=== PATIENT | male | born 2000 | race Caucasian/White ===

== ENCOUNTER 2021-08-01 22:22 | Inpatient (IN) | payer BC, SELFPAY ==
--- NOTE | ~2021-08-01 | XR_ITS ---
EXAMINATION: XR CHEST CLINICAL INFORMATION: Pain. COMPARISON: None TECHNIQUE: 2 views of the chest were obtained. FINDINGS: No significant abnormality is noted involving the heart, lungs, mediastinum, bony thorax or soft tissues. XR/XR chest 2V IMPRESSION: Unremarkable examination.
[2021-08-01 18:00] VITALS: BP 132/81; PULSE 73; TEMP 36.8
[2021-08-02] MEDS: Acetaminophen 325 MG TABLET 650 MG PO ×2 (00:06→18:49)
[2021-08-02] MEDS: hydrOXYzine HCL 25 MG TABLET PO (00:07)
[2021-08-02] MEDS: traZODone HCL 50 MG TABLET PO (00:07)
--- NOTE | 2021-08-02 10:56 | PC.NURSE ---
pt is not a smoker and does not need nicotine replacement. pt has already had the influenza vaccination.
--- NOTE | 2021-08-02 12:02 | P.CONIM_ITS ---
History of Present Illness Data of Consult Service Date: 08/02/21 Primary Care Provider: Unknown Physician HPI Reason for consult: Routine Medical H&P This is a 20 yo M with a PMH of UC (diangosed at the age of 9) -- reports he on mercaptopurine who is admitted to the inpatient psychiatric unit. Medical services consulted for routine medical H&P per protocol. Patient is seen and examined in his room. He denies any abodminal symptoms -- no pain, n/v/d or blood in stool. Reports his UC has been in control with his medications. He does f/u with a GI doctor as an outpatient. Review of Systems Review of Systems: negative except HPI FORMERLY [facility], [facility] Medical History (Updated 08/02/21 @ 12:14 by Ryan Nayak MD) Ulcerative colitis Pertinent family history: denies any medical problems in his family Surgical History (Updated 08/02/21 @ 12:05 by Ryan Nayak MD) Status post medial meniscus repair Social History (Updated 08/02/21 @ 12:05 by Ryan Nayak MD) Alcohol intake: current Patient Tobacco Use Status: Never used Tobacco Substance Use Type: Marijuana Advance Directives: No Advance Directives Information Provided: No Meds Allergies Allergy/AdvReac Type Severity Reaction Status Date / Time Seasonal Allergies Allergy Intermediate respiratory Verified 08/01/21 16:52 Active Medications: Current Medications Acetaminophen (Acetaminophen 325 Mg Tablet) 650 mg PO Q6H PRN PRN Reason: Headache/Pain Mild Scale (1-3) Last Admin: 08/02/21 00:06 Dose: 650 mg Documented by: Al Hydroxide/Mg Hydroxide (Magnesium Hydrox/Alum Hydrox 30 Ml Oral.Susp) 30 ml PO Q6H PRN PRN Reason: Heartburn/Nausea Diphenhydramine HCl (Diphenhydramine Hcl 25 Mg Tablet) 50 mg PO Q4H PRN PRN Reason: agitation Haloperidol (Haloperidol 5 Mg Tablet) 5 mg PO Q4H PRN PRN Reason: agitation Hydroxyzine HCl (Hydroxyzine Hcl 25 Mg Tablet) 25 mg PO BEDTIME PRN PRN Reason: Anxiety Last Admin: 08/02/21 00:07 Dose: 25 mg Documented by: Lorazepam (Lorazepam 1 Mg Tablet) 2 mg PO Q4H PRN PRN Reason: agitation Magnesium Hydroxide (Milk Of Magnesia 30 Ml Oral.Susp) 30 ml PO DAILY PRN PRN Reason: Constipation Quetiapine Fumarate (Quetiapine Fumarate 100 Mg Tablet) 100 mg PO BEDTIME RAY Trazodone HCl (Trazodone Hcl 50 Mg Tablet) 50 mg PO BEDTIME PRN PRN Reason: Insomnia Last Admin: 08/02/21 00:07 Dose: 50 mg Documented by: Physical Exam Vital Signs and Narrative: Vital Signs: Last Vital Signs Temp 98.2 F 08/01/21 18:00 Pulse 73 08/01/21 18:00 BP 132/81 08/01/21 18:00 Const: Other: Constitutional - Awake and Alert, No apparent distress Eyes - PERRLA, EOMI Cardiovascular - S1S2, RRR, No edema Respiratory - Normal lung expansion, Normal respiratory effort, No respiratory distress, CTA bilaterally Gastrointestinal - NT / ND; +BS; No rebound or guarding - No CVA tenderness Extremities - no calf tenderness bilaterally, no swelling Musculoskeletal - Normal inspection, normal ROM Skin - Warm/Dry Neurological - Alert & oriented x3, No focal deficit; CN 2-12 intact bilaterally Psychological - Appropriate affect Assessment and Plan (1) Routine medical exam: Status: Acute This is a 20 yo M with a PMH of UC on Mercaptopurine who is admitted to the inpatient psych unit. Medical services consulted for routine medical H&P. Patient does not have any active medical issues. Would continue his baseline UC medications. Would check routine labs if not already done so. Please reconsult PRN.
--- NOTE | 2021-08-02 14:39 | HO.PSYADMNOT ---
HPI Date of Service: 08/02/21 Chief Complaint: delusional disorder,provisional Sources of Information: patient interviewed, chart reviewed and crisis/core team assessment reviewed HPI Subjective Notes: [place] Warning and Conditional Voluntary Narrative: Patient is a 20-year-old male with history of behavioral dysregulation, mood disorder, ulcerative colitis, ADHD and some history of psychotic symptoms who presents with somatic delusions delusions that his bones are out of place, that his veins have changed and that his right arm tricep and bicep been switched. Patient says that about 2 weeks ago he got into an argument with a friend who he feels emotionally betrayed him. Otherwise he says that he has been doing overall fine, and attending school though academics have been hard. Patient has a history of right knee surgery and says that last Thursday he tweaked his knee. He walked on it however and feels that somehow this affected his hips which affected his ribs, which affected his right arm. He said that when he went to the emergency room he could feel his arm twist and he thinks that now his bicep and tricep have been switched; he also says that there seemed to be more bones in his arm than there are supposed to be. Patient says that he has not lost any function in and is able to do everything he could normally do however he feels a sense of discomfort in his body, and believes that something is wrong. He was frustrated with emergency room it [facility] since they only imaged his knee. Patient denies any AVH. He also denies any SI or HI. Patient denies any concern for being persecuted does not express any other delusional thinking. He is very vague on his history and it is not clear if he is confused or if he is guarded. Eventually he shared that he has had at least 6 past inpatient admissions either for drug use or for behavioral dysregulation. He seems to say his last admission was was about 2 years ago; 1st he said he could not remember why but then he said he was getting pissed off, smashing a book and then destroying stuff in [his] room. He said he was admitted for 3 weeks. Patient says that 1 time before he had psychotic symptoms while he was smoking cannabis where he thought that his veins had changed their pattern. Currently he reports smoking cannabis every few days and then drinking excessively but only on the weekends. He denies other drug use. He denies history of manic type episodes or behaviors. Denies history of trauma. Patient says he has mood swings and that can sometimes get into a dark place however said this lasted only a day or 2. 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 [employer] where he lives in a dorm with a roommate Patient's stepmom and adoptive dad live locally and patient has siblings Substance History: Patient vague on details but says he has been admitted for history of drug use Currently he smokes cannabis every other day and uses alcohol on the weekends Trauma History: Denies Diagnostics Vital Signs (24Hr): Vital Signs - 24 hr 08/01/21 18:00 Temperature 98.2 F Pulse Rate 73 Blood Pressure 132/81 Meds/Allergies Meds Home Medications Acetaminophen (Acetaminophen 325 Mg Tablet) 650 mg PO Q6H PRN PRN Reason: Headache/Pain Mild Scale (1-3) Last Admin: 08/02/21 00:06 Dose: 650 mg Documented by: Al Hydroxide/Mg Hydroxide (Magnesium Hydrox/Alum Hydrox 30 Ml Oral.Susp) 30 ml PO Q6H PRN PRN Reason: Heartburn/Nausea Brexpiprazole (Brexpiprazole 1 Mg Tablet) 1 mg PO BEDTIME RAY Diphenhydramine HCl (Diphenhydramine Hcl 25 Mg Tablet) 50 mg PO Q4H PRN PRN Reason: agitation Haloperidol (Haloperidol 5 Mg Tablet) 5 mg PO Q4H PRN PRN Reason: agitation Hydroxyzine HCl (Hydroxyzine Hcl 25 Mg Tablet) 25 mg PO BEDTIME PRN PRN Reason: Anxiety Last Admin: 08/02/21 00:07 Dose: 25 mg Documented by: Lorazepam (Lorazepam 1 Mg Tablet) 2 mg PO Q4H PRN PRN Reason: agitation Magnesium Hydroxide (Milk Of Magnesia 30 Ml Oral.Susp) 30 ml PO DAILY PRN PRN Reason: Constipation Quetiapine Fumarate (Quetiapine Fumarate 100 Mg Tablet) 100 mg PO BEDTIME RAY Trazodone HCl (Trazodone Hcl 50 Mg Tablet) 50 mg PO BEDTIME PRN PRN Reason: Insomnia Last Admin: 08/02/21 00:07 Dose: 50 mg Documented by: Allergies Allergies Allergy/AdvReac Type Severity Reaction Status Date / Time Seasonal Allergies Allergy Intermediate respiratory Verified 08/01/21 16:52 Mental Status Exam Mental Status Exam Narrative: Pt is alert and oriented; behavior is cooperative, calm; patient is not in distress; dressed in appropriate, casual attire with adequate hygiene; mood is described as ok and affect blunted; minimal eye contact; Speech is a little slow, a little latent, but normal volume; some psychomotor retardation present; thought process is organized and goal directed; Thought content is on somatic delusions (bones, muscles out of place); otherwise pertinent to relevant topics; denies paranoid ideations; no grandiosity; denies any SI/HI. There is no evidence of perceptual disturbance and denies AVH. Patients insight and judgment are impaired. Assessment & Plan Assessment & Plan (1) Delusional disorder: Status: Acute Code(s): F22 - Delusional disorders Assessment and Plan: IMPRESSION: Patient is a 20-year-old male with history of behavioral dysregulation, mood disorder, ulcerative colitis and some history of psychotic symptoms who presents with somatic delusions that his bones are out of place, that his veins have changed and that his right arm tricep and bicep been switched. Patient is vague and it is not clear if this is due to some confusion/thought blocking or patient being guarded. He has a history of past psychiatric admissions and admissions for drug abuse but again he is very vague on the details. Patient said that he has had past cannabis induced psychotic symptoms of somatic delusion but these were short-lived and otherwise patient said that everything was going fine until this past Thursday when he developed his current somatic concerns. There seems to be a history of intermittent psychotic symptoms; it is possible that this is due to drug-induced etiology however there is concern it represents a burgeoning organic psychotic disorder. Patient says that he takes his medications regularly. He agrees to increase in Rexulti. dx: provisonal dx of Delusional Disorder r/o brief Psychotic disorder r/o schizophreniform/schizophrenia ADHD PLAN: Patient currently on CV Q 15 minute checks Will increase Rexulti to 1 mg q.h.s.; this may need to be titrated further Otherwise will continue home medications Will gather collateral to help assess; patient is given verbal permission to flex o writer operator and social services coordinator who met with patient at the same time, to talk to his family members, therapist and providers Reason for continued inpatient stay Substantial Risk for: med/psych decompensation
--- NOTE | 2021-08-02 16:22 | PC.ADMIT ---
Not done upon admission
[2021-08-02 18:00] VITALS: BP 143/89; PULSE 68; TEMP 37
[2021-08-02 19:25] VITALS: BP 143/89; PULSE 68
[2021-08-02] MEDS: QUEtiapine Fumarate 100 MG TABLET PO (19:25)
[2021-08-02] MEDS: Brexpiprazole 1 MG TABLET PO (19:25)
[2021-08-02] MEDS: Propranolol HCL 10 MG TABLET PO (19:25)
[2021-08-03 06:00] VITALS: BP 93/51; PULSE 64; RESP 18; TEMP 36.6; O2SAT 97
[2021-08-03] MEDS: Escitalopram Oxalate 5 MG TABLET PO (08:55)
[2021-08-03 09:06] VITALS: BP 108/66; PULSE 49
[2021-08-03 18:00] VITALS: BP 157/95; PULSE 87; RESP 16; TEMP 36.6
--- NOTE | 2021-08-03 18:06 | HO.PSYCHPN ---
Subjective Subjective Date of Service: 08/03/21 Reason For Visit: delusional disorder,provisional Interim History: Somatic focus-delusional content regarding his physical reports. I am out of place, my body hurts . Tolerating Rexulti increase. Asking all day to see medical specialists for consult. Attempted to re-direct, support, encourage. Medication Compliance: Yes Side effects from medications: No Attending Groups: No Review of Systems Acute medical concerns: No Medical Review of Systems: unchanged Review of Systems Musculoskeletal: Reports myalgias, Reports arthralgias and Reports stiffness Reports behavioral changes and Reports confusion Psychiatric: Reports anxiety, Reports behavioral changes, Reports confusion, Reports depression, Reports difficulty concentrating, Reports hopelessness, Reports irritability, Reports paranoia and Reports hallucinations Mental Status Exam Mental Status Exam Patient Appearance: Disheveled Patient Orientation: Person and Place Level of Consciousness: Alert Patient Behavior: Guarded, Talkative and Suspicious Mood Description: Constricted Affect Description: Constricted Patient Cognition Impaired: No Ability to Follow Directions: Fair Speech Pattern: Spontaneous Speech Memory Description: Remote Impaired and Episodic Impaired Delusions: Paranoid Ideation and Present Thought Process: Illogical Thought Content: positive for Hypochondriasis Depressive Symptoms: Increased Anxiety and Increased Irritability Abnormal Motor Activity Signs and Symptoms: Restlessness Judgement: Poor Diagnostics Vital Signs (24Hr): Vital Signs - 24 hr 08/02/21 19:25 08/03/21 06:00 08/03/21 09:06 Temperature 97.8 F Pulse Rate 68 64 49 L Respiratory Rate 18 Blood Pressure 143/89 H 93/51 L 108/66 Pulse Oximetry 97 Medications Medications Current Medications Acetaminophen (Acetaminophen 325 Mg Tablet) 650 mg PO Q6H PRN PRN Reason: Headache/Pain Mild Scale (1-3) Last Admin: 08/02/21 18:49 Dose: 650 mg Documented by: Al Hydroxide/Mg Hydroxide (Magnesium Hydrox/Alum Hydrox 30 Ml Oral.Susp) 30 ml PO Q6H PRN PRN Reason: Heartburn/Nausea Brexpiprazole (Brexpiprazole 1 Mg Tablet) 1 mg PO BEDTIME [facility] Last Admin: 08/02/21 19:25 Dose: 1 mg Documented by: Diphenhydramine HCl (Diphenhydramine Hcl 25 Mg Tablet) 50 mg PO Q4H PRN PRN Reason: agitation Escitalopram Oxalate (Escitalopram Oxalate 5 Mg Tablet) 5 mg PO DAILY [facility] Last Admin: 08/03/21 08:55 Dose: 5 mg Documented by: Haloperidol (Haloperidol 5 Mg Tablet) 5 mg PO Q4H PRN PRN Reason: agitation Hydroxyzine HCl (Hydroxyzine Hcl 25 Mg Tablet) 25 mg PO BEDTIME PRN PRN Reason: Anxiety Last Admin: 08/02/21 00:07 Dose: 25 mg Documented by: Lorazepam (Lorazepam 1 Mg Tablet) 2 mg PO Q4H PRN PRN Reason: agitation Magnesium Hydroxide (Milk Of Magnesia 30 Ml Oral.Susp) 30 ml PO DAILY PRN PRN Reason: Constipation Non-Formulary Medication (Patient Own Medication) 1 each PO DAILY RAY Propranolol HCl (Propranolol Hcl 10 Mg Tablet) 10 mg PO BID RAY; Protocol Last Admin: 08/03/21 09:06 Dose: Not Given Documented by: Quetiapine Fumarate (Quetiapine Fumarate 100 Mg Tablet) 100 mg PO BEDTIME RAY Last Admin: 08/02/21 19:25 Dose: 100 mg Documented by: Trazodone HCl (Trazodone Hcl 50 Mg Tablet) 50 mg PO BEDTIME PRN PRN Reason: Insomnia Last Admin: 08/02/21 00:07 Dose: 50 mg Documented by: Allergies Allergies Allergy/AdvReac Type Severity Reaction Status Date / Time Seasonal Allergies Allergy Intermediate respiratory Verified 08/01/21 16:52 Assessment & Plan Assessment & Plan (1) Delusional disorder: Status: Acute Code(s): F22 - Delusional disorders Assessment and Plan: IMPRESSION: Patient is a 20-year-old male with history of behavioral dysregulation, mood disorder, ulcerative colitis and some history of psychotic symptoms who presents with somatic delusions that his bones are out of place, that his veins have changed and that his right arm tricep and bicep been switched. Patient is vague and it is not clear if this is due to some confusion/thought blocking or patient being guarded. He has a history of past psychiatric admissions and admissions for drug abuse but again he is very vague on the details. Patient said that he has had past cannabis induced psychotic symptoms of somatic delusion but these were short-lived and otherwise patient said that everything was going fine until this past Thursday when he developed his current somatic concerns. There seems to be a history of intermittent psychotic symptoms; it is possible that this is due to drug-induced etiology however there is concern it represents a burgeoning organic psychotic disorder. Patient says that he takes his medications regularly. He agrees to increase in Rexulti. dx: provisonal dx of Delusional Disorder r/o brief Psychotic disorder r/o schizophreniform/schizophrenia ADHD PLAN: Patient currently on CV Q 15 minute checks Will increase Rexulti to 1 mg q.h.s.; this may need to be titrated further Otherwise will continue home medications Will gather collateral to help assess; patient is given verbal permission to narrative writer and social science teacher who met with patient at the same time, to talk to his family members, therapist and providers 08/03/21 Coverage: Continue current plan. Support, alliance building I spent minutes with the patient and/or on the patient floor today, greater than?50% of which was spent counseling/coordinating care. Patient educated on: medical condition Informed Consent: further education needed Reason for contiued inpatient stay Substantial Risk for: rapid decompensation
[2021-08-03 21:36] VITALS: BP 157/95; PULSE 87
[2021-08-03] MEDS: QUEtiapine Fumarate 100 MG TABLET PO (21:36)
[2021-08-03] MEDS: Brexpiprazole 1 MG TABLET PO (21:36)
[2021-08-03] MEDS: traZODone HCL 50 MG TABLET PO (21:36)
[2021-08-03] MEDS: Propranolol HCL 10 MG TABLET PO (21:36)
[2021-08-04 06:00] VITALS: BP 101/57; PULSE 46; RESP 18; TEMP 36.3; O2SAT 97
[2021-08-04 08:39] VITALS: BP 102/61; PULSE 56
[2021-08-04] MEDS: Escitalopram Oxalate 5 MG TABLET PO (08:39)
[2021-08-04] MEDS: Propranolol HCL 10 MG TABLET PO ×2 (08:39→20:29)
[2021-08-04 13:39] LABS: C Reactive Protein 0.04 mg/dL (< or = 0.50); Iron 129 mcg/dL (45-160); Percent Iron Saturation 38 % (15-50); Total Iron Binding Capacity 344 mcg/dL (228-428); Unsaturated Iron Binding 215 ug/dL
--- NOTE | 2021-08-04 13:39 | PC.NURSE ---
Pt signed a 3 day notice , up on 08/07
[2021-08-04 13:43] LABS: Rheumatoid Factor < 15.0 IU/mL (<15.0)
[2021-08-04 13:59] LABS: Thyroid Stimulating Hormone 0.43 uIU/mL (0.32-4.0)
[2021-08-04 15:14] LABS: Erythrocyte Sedimentation Rate 2 MM/HR (0-15)
--- NOTE | 2021-08-04 15:44 | HO.PSYCHPN ---
Subjective Subjective Date of Service: 08/04/21 Reason For Visit: delusional disorder,provisional Subjective Notes: Conditional Voluntary Interim History: Pt considering a three day notice as he is not being treated medically. Discussed medical clearance at both facilities-pt not satisfied. Reports feet are painful, he has a lump on his head and bones are still out of place-collar bone, neck, knee clicks, elbow. Discussed further eval-pt more engaged after this- Do I really need a psychiatric unit.? Discussed that while symptoms are real, etiology at this time is not considered medical, however, will proceed with conservative eval. Medication Compliance: Yes Side effects from medications: No Attending Groups: Intermittent Review of Systems Acute medical concerns: Yes Multiple reports of discomfort and symptoms. Medical Review of Systems: unchanged Review of Systems Musculoskeletal: Reports myalgias, Reports arthralgias and Reports stiffness Reports behavioral changes and Reports confusion Psychiatric: Reports anxiety, Reports behavioral changes, Reports confusion, Reports depression, Reports difficulty concentrating, Reports hopelessness, Reports irritability, Reports paranoia and Reports hallucinations Mental Status Exam Mental Status Exam Patient Appearance: Disheveled Patient Orientation: Person and Place Level of Consciousness: Alert Patient Behavior: Guarded, Talkative and Suspicious Mood Description: Constricted Affect Description: Constricted Patient Cognition Impaired: No Ability to Follow Directions: Fair Speech Pattern: Spontaneous Speech Memory Description: Remote Impaired and Episodic Impaired Delusions: Paranoid Ideation and Present Thought Process: Illogical Thought Content: positive for Hypochondriasis Depressive Symptoms: Increased Anxiety and Increased Irritability Abnormal Motor Activity Signs and Symptoms: Restlessness Judgement: Poor Diagnostics Vital Signs (24Hr): Vital Signs - 24 hr 08/03/21 18:00 08/03/21 21:36 08/04/21 06:00 Temperature 97.8 F 97.3 F Pulse Rate 87 87 46 L Respiratory Rate 16 18 Blood Pressure 157/95 H 157/95 H 101/57 L Pulse Oximetry 97 08/04/21 08:39 Temperature Pulse Rate 56 Respiratory Rate Blood Pressure 102/61 Pulse Oximetry Labs Labs: Laboratory Results - last 48 hr 08/04/21 08/04/21 08/04/21 13:15 13:15 13:15 ESR 2 Iron 129 TIBC 344 % Saturation 38 Unsat Iron Binding 215 C-Reactive Protein 0.04 TSH 0.43 Rheumatoid Factor < 15.0 Imaging Radiology Impressions: ITS Impressions Chest X-Ray 08/04/21 12:04 IMPRESSION: Unremarkable examination. Medications Medications Current Medications Acetaminophen (Acetaminophen 325 Mg Tablet) 650 mg PO Q6H PRN PRN Reason: Headache/Pain Mild Scale (1-3) Last Admin: 08/02/21 18:49 Dose: 650 mg Documented by: Al Hydroxide/Mg Hydroxide (Magnesium Hydrox/Alum Hydrox 30 Ml Oral.Susp) 30 ml PO Q6H PRN PRN Reason: Heartburn/Nausea Brexpiprazole (Brexpiprazole 1 Mg Tablet) 1 mg PO BEDTIME [facility] Last Admin: 08/03/21 21:36 Dose: 1 mg Documented by: Diphenhydramine HCl (Diphenhydramine Hcl 25 Mg Tablet) 50 mg PO Q4H PRN PRN Reason: agitation Escitalopram Oxalate (Escitalopram Oxalate 5 Mg Tablet) 5 mg PO DAILY [facility] Last Admin: 08/04/21 08:39 Dose: 5 mg Documented by: Haloperidol (Haloperidol 5 Mg Tablet) 5 mg PO Q4H PRN PRN Reason: agitation Hydroxyzine HCl (Hydroxyzine Hcl 25 Mg Tablet) 25 mg PO BEDTIME PRN PRN Reason: Anxiety Last Admin: 08/02/21 00:07 Dose: 25 mg Documented by: Lorazepam (Lorazepam 1 Mg Tablet) 2 mg PO Q4H PRN PRN Reason: agitation Magnesium Hydroxide (Milk Of Magnesia 30 Ml Oral.Susp) 30 ml PO DAILY PRN PRN Reason: Constipation Non-Formulary Medication (Patient Own Medication) 1 each PO DAILY [facility] Propranolol HCl (Propranolol Hcl 10 Mg Tablet) 10 mg PO BID [facility]; Protocol Last Admin: 08/04/21 08:39 Dose: 10 mg Documented by: Quetiapine Fumarate (Quetiapine Fumarate 100 Mg Tablet) 100 mg PO BEDTIME RAY Last Admin: 08/03/21 21:36 Dose: 100 mg Documented by: Trazodone HCl (Trazodone Hcl 50 Mg Tablet) 50 mg PO BEDTIME PRN PRN Reason: Insomnia Last Admin: 08/03/21 21:36 Dose: 50 mg Documented by: Allergies Allergies Allergy/AdvReac Type Severity Reaction Status Date / Time Seasonal Allergies Allergy Intermediate respiratory Verified 08/01/21 16:52 Assessment & Plan Assessment & Plan (1) Delusional disorder: Status: Acute Code(s): F22 - Delusional disorders Assessment and Plan: IMPRESSION: Patient is a 20-year-old male with history of behavioral dysregulation, mood disorder, ulcerative colitis and some history of psychotic symptoms who presents with somatic delusions that his bones are out of place, that his veins have changed and that his right arm tricep and bicep been switched. Patient is vague and it is not clear if this is due to some confusion/thought blocking or patient being guarded. He has a history of past psychiatric admissions and admissions for drug abuse but again he is very vague on the details. Patient said that he has had past cannabis induced psychotic symptoms of somatic delusion but these were short-lived and otherwise patient said that everything was going fine until this past Thursday when he developed his current somatic concerns. There seems to be a history of intermittent psychotic symptoms; it is possible that this is due to drug-induced etiology however there is concern it represents a burgeoning organic psychotic disorder. Patient says that he takes his medications regularly. He agrees to increase in Rexulti. dx: provisonal dx of Delusional Disorder r/o brief Psychotic disorder r/o schizophreniform/schizophrenia ADHD PLAN: Patient currently on CV Q 15 minute checks Will increase Rexulti to 1 mg q.h.s.; this may need to be titrated further Otherwise will continue home medications Will gather collateral to help assess; patient is given verbal permission to aligner typewriter and social welfare research worker who met with patient at the same time, to talk to his family members, therapist and providers 08/03/21 Coverage: Continue current plan. Support, alliance building 08/04/21 Coverage: Continue current plan. Pt considering three day notice Chest Xray, Iron Profile, ESR, CRP, TFT, RA Factor, Vit D. I spent minutes with the patient and/or on the patient floor today, greater than?50% of which was spent counseling/coordinating care. Patient educated on: diagnosis and medical condition Informed Consent: does not understand and further education needed Reason for contiued inpatient stay Substantial Risk for: inability to function and rapid decompensation
[2021-08-04 16:44] VITALS: BP 111/72; PULSE 59; RESP 16; TEMP 36.6; O2SAT 97
--- NOTE | 2021-08-04 19:16 | PC.NURSE ---
Pt's mother called and was concerned because pt was posting angry statuses on his social media accounts. This RN informed her and the pt that pt's are not allowed to use their phones for internet or social media access.
[2021-08-04 20:29] VITALS: BP 135/76; PULSE 87
[2021-08-04] MEDS: QUEtiapine Fumarate 100 MG TABLET PO (20:29)
[2021-08-04] MEDS: Brexpiprazole 1 MG TABLET PO (20:29)
[2021-08-04] MEDS: traZODone HCL 50 MG TABLET PO (20:29)
--- NOTE | 2021-08-05 | ECG_ITS ---
Test Reason : bradycardia Blood Pressure : / mmHG Vent. Rate : 073 BPM Atrial Rate : 073 BPM P-R Int : 144 ms QRS Dur : 098 ms QT Int : 358 ms P-R-T Axes : 075 094 053 degrees QTc Int : 394 ms Normal sinus rhythm Rightward axis Borderline ECG No previous ECGs available Referred By: Giuseppe Kelsey Electronically Signed By:JENNY TANG
[2021-08-05 01:03] LABS: Vitamin D 25-OH Total 33.4 ng/mL (>30)
[2021-08-05] MEDS: Escitalopram Oxalate 5 MG TABLET PO (09:08)
[2021-08-05 09:09] VITALS: BP 119/72; PULSE 46
--- NOTE | 2021-08-05 09:13 | PC.NURSE ---
Propanolol held due to pulse of 46
[2021-08-05 09:14] LABS: Estimated Average Glucose 100 mg/dL; Hemoglobin A1C 151.5301 umol/L; Hemoglobin A1c % 5.1 %
[2021-08-05 09:16] LABS: Cholesterol 127 mg/dL; HDL Cholesterol 44 mg/dL; LDL Cholesterol Calculated 72 mg/dl; Triglycerides 59 mg/dL
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
[2021-08-05 13:16] LABS: COVID-19 Test Negative (Negative)
[2021-08-05] MEDS: Acetaminophen 325 MG TABLET 650 MG PO (17:32)
[2021-08-05 17:35] VITALS: BP 135/95; PULSE 95; TEMP 36.8; O2SAT 97
[2021-08-05 22:32] VITALS: BP 137/80; PULSE 97
[2021-08-05] MEDS: traZODone HCL 50 MG TABLET PO (22:32)
[2021-08-05] MEDS: Brexpiprazole 1 MG TABLET PO (22:32)
[2021-08-05] MEDS: Propranolol HCL 10 MG TABLET PO (22:32)
[2021-08-05] MEDS: QUEtiapine Fumarate 100 MG TABLET PO (22:32)
[2021-08-06 06:00] VITALS: BP 99/50; PULSE 50; RESP 16; TEMP 36.3; O2SAT 97
[2021-08-06 09:07] VITALS: BP 116/62; PULSE 63
[2021-08-06] MEDS: Escitalopram Oxalate 5 MG TABLET PO (09:07)
[2021-08-06] MEDS: Propranolol HCL 10 MG TABLET PO ×2 (09:07→21:01)
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
[2021-08-06] MEDS: Acetaminophen 325 MG TABLET 650 MG PO (13:51)
[2021-08-06 20:45] VITALS: BP 115/72; PULSE 77; TEMP 36.8
[2021-08-06 21:01] VITALS: BP 115/72; PULSE 77
[2021-08-06] MEDS: QUEtiapine Fumarate 100 MG TABLET PO (21:02)
[2021-08-06] MEDS: Brexpiprazole 1 MG TABLET PO (21:03)
[2021-08-06] MEDS: traZODone HCL 50 MG TABLET PO ×2 (21:04→23:18)
[2021-08-06] MEDS: hydrOXYzine HCL 25 MG TABLET PO (23:20)
[2021-08-07 06:00] VITALS: BP 108/56; PULSE 55; RESP 16; TEMP 36.4; O2SAT 96
[2021-08-07] MEDS: Escitalopram Oxalate 5 MG TABLET PO (08:45)
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
[2021-08-07 21:55] VITALS: BP 145/88; PULSE 76; TEMP 36.2; O2SAT 97
[2021-08-07 22:04] VITALS: BP 145/88; PULSE 76
[2021-08-07] MEDS: traZODone HCL 50 MG TABLET PO (22:04)
[2021-08-07] MEDS: Brexpiprazole 1 MG TABLET PO (22:04)
[2021-08-07] MEDS: Propranolol HCL 10 MG TABLET PO (22:04)
[2021-08-07] MEDS: QUEtiapine Fumarate 100 MG TABLET PO (22:04)
[2021-08-07] MEDS: Ibuprofen 600 MG TABLET PO (23:22)
[2021-08-08 06:00] VITALS: BP 111/58; PULSE 54; RESP 16; TEMP 36.1; O2SAT 97
[2021-08-08 08:35] VITALS: BP 111/58; PULSE 54
[2021-08-08] MEDS: Propranolol HCL 10 MG TABLET PO ×2 (08:35→20:12)
[2021-08-08] MEDS: Escitalopram Oxalate 5 MG TABLET PO (08:35)
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
[2021-08-08 20:12] VITALS: BP 119/59; PULSE 70
[2021-08-08] MEDS: traZODone HCL 50 MG TABLET PO (20:12)
[2021-08-08] MEDS: QUEtiapine Fumarate 100 MG TABLET PO (20:12)
[2021-08-08] MEDS: Brexpiprazole 1 MG TABLET PO (20:12)
[2021-08-09 06:00] VITALS: BP 111/56; PULSE 64; RESP 16; TEMP 36.3; O2SAT 98
[2021-08-09] MEDS: Propranolol HCL 10 MG TABLET PO ×2 (07:49→20:43)
[2021-08-09] MEDS: Escitalopram Oxalate 5 MG TABLET PO (07:49)
[2021-08-09] MEDS: Acetaminophen 325 MG TABLET 650 MG PO ×2 (08:12→20:42)
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
[2021-08-09 20:43] VITALS: BP 137/88; PULSE 88
[2021-08-09] MEDS: Brexpiprazole 1 MG TABLET PO (20:43)
[2021-08-09] MEDS: traZODone HCL 50 MG TABLET PO (20:44)
[2021-08-09] MEDS: QUEtiapine Fumarate 100 MG TABLET PO (20:44)
[2021-08-10 08:17] VITALS: BP 141/66; PULSE 77
[2021-08-10] MEDS: Escitalopram Oxalate 5 MG TABLET PO (08:17)
[2021-08-10] MEDS: Propranolol HCL 10 MG TABLET PO ×2 (08:17→19:50)
[2021-08-10 08:27] VITALS: BP 141/66; PULSE 77; RESP 16
[2021-08-10] MEDS: Acetaminophen 325 MG TABLET 650 MG PO ×2 (11:09→21:29)
[2021-08-10] MEDS: diphenhydrAMINE HCL 25 MG TABLET 50 MG PO (12:29)
[2021-08-10] MEDS: Ibuprofen 600 MG TABLET PO (12:29)
[2021-08-10] MEDS: Gabapentin 100 MG CAPSULE PO ×2 (15:03→21:31)
[2021-08-10] MEDS: hydrOXYzine HCL 25 MG TABLET PO (19:48)
[2021-08-10] MEDS: QUEtiapine Fumarate 100 MG TABLET PO (19:49)
[2021-08-10] MEDS: Brexpiprazole 1 MG TABLET PO (19:49)
[2021-08-10 19:50] VITALS: BP 138/91; PULSE 91
[2021-08-10 19:53] VITALS: BP 138/91; PULSE 91; RESP 18; O2SAT 99
[2021-08-10] MEDS: traZODone HCL 50 MG TABLET PO (21:33)
[2021-08-11 06:00] VITALS: BP 126/71; PULSE 85; RESP 16; TEMP 36.3; O2SAT 96
[2021-08-11] MEDS: Propranolol HCL 10 MG TABLET PO ×2 (08:21→20:03)
[2021-08-11] MEDS: Acetaminophen 325 MG TABLET 650 MG PO ×2 (08:21→15:47)
[2021-08-11] MEDS: Escitalopram Oxalate 5 MG TABLET PO (08:21)
[2021-08-11] MEDS: Gabapentin 100 MG CAPSULE PO (08:21)
[2021-08-11] MEDS: Ibuprofen 600 MG TABLET PO (10:43)
[2021-08-11] MEDS: diphenhydrAMINE HCL 25 MG TABLET 50 MG PO (10:44)
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
[2021-08-11 17:11] VITALS: BMI 22.1
[2021-08-11] MEDS: Nicotine Polacrilex 2 MG GUM BUCCAL (17:23)
[2021-08-11 18:00] VITALS: BP 156/100; PULSE 89; RESP 16
[2021-08-11] MEDS: Gabapentin 100 MG CAPSULE 200 MG PO (20:02)
[2021-08-11 20:03] VITALS: BP 156/100; PULSE 89
[2021-08-11] MEDS: QUEtiapine Fumarate 100 MG TABLET PO (20:03)
[2021-08-11] MEDS: Brexpiprazole 1 MG TABLET PO (20:03)
[2021-08-11] MEDS: traZODone HCL 50 MG TABLET PO (21:42)
[2021-08-12 06:00] VITALS: BP 138/80; PULSE 60; RESP 16; TEMP 36.2; O2SAT 100
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
[2021-08-12] MEDS: Gabapentin 100 MG CAPSULE 200 MG PO ×2 (08:31→21:11)
[2021-08-12] MEDS: Propranolol HCL 10 MG TABLET PO ×2 (08:31→21:11)
[2021-08-12] MEDS: Escitalopram Oxalate 5 MG TABLET PO (08:31)
[2021-08-12] MEDS: Acetaminophen 325 MG TABLET 650 MG PO (08:31)
[2021-08-12] MEDS: Nicotine Polacrilex 2 MG GUM BUCCAL (08:34)
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
[2021-08-12] MEDS: Haloperidol Lactate 5 MG/ML VIAL IM (10:12)
[2021-08-12] MEDS: LORazepam 2 MG/ML VIAL IM (10:12)
[2021-08-12] MEDS: diphenhydrAMINE HCL 50 MG/ML VIAL IM (10:12)
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
[2021-08-12 18:00] VITALS: BP 138/68; PULSE 91; RESP 16
[2021-08-12 21:11] VITALS: BP 138/68; PULSE 91
[2021-08-12] MEDS: QUEtiapine Fumarate 100 MG TABLET PO (21:11)
[2021-08-12] MEDS: Brexpiprazole 1 MG TABLET PO (21:11)
[2021-08-12] MEDS: traZODone HCL 50 MG TABLET PO (21:12)
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
[2021-08-13 08:55] VITALS: BP 127/75; PULSE 77
[2021-08-13] MEDS: Propranolol HCL 10 MG TABLET PO ×2 (08:55→19:58)
[2021-08-13] MEDS: Escitalopram Oxalate 5 MG TABLET PO (08:55)
[2021-08-13] MEDS: Gabapentin 100 MG CAPSULE 200 MG PO ×2 (08:55→19:58)
[2021-08-13] MEDS: Acetaminophen 325 MG TABLET 650 MG PO ×2 (11:26→21:00)
[2021-08-13] MEDS: Nicotine Polacrilex 2 MG GUM BUCCAL (11:29)
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
[2021-08-13 16:53] VITALS: BP 135/80; PULSE 87
[2021-08-13 19:45] VITALS: BP 154/86; PULSE 96; RESP 20; TEMP 36.4; O2SAT 96
[2021-08-13] MEDS: QUEtiapine Fumarate 100 MG TABLET PO (19:57)
[2021-08-13] MEDS: Brexpiprazole 1 MG TABLET 1.5 MG PO (19:57)
[2021-08-13 19:58] VITALS: BP 154/86; PULSE 96
[2021-08-13] MEDS: traZODone HCL 50 MG TABLET PO (20:19)
[2021-08-14 05:41] VITALS: BP 135/88; PULSE 81; RESP 18; TEMP 36.2; O2SAT 98
[2021-08-14 08:26] VITALS: BP 124/77; PULSE 79
[2021-08-14] MEDS: Propranolol HCL 10 MG TABLET PO (08:26)
[2021-08-14] MEDS: Escitalopram Oxalate 5 MG TABLET PO (08:26)
[2021-08-14] MEDS: Gabapentin 100 MG CAPSULE 200 MG PO (08:26)
== END 2021-08-14 11:13 | DRG 760 ==
PROVIDERS: Clinical Nurse Specialist Psychiatric/Mental Health, Adult; Admitting Provider Psychiatry & Neurology Psychiatry; Visit Provider Psychiatry & Neurology Psychiatry
DX: F22 Delusional disorders (principal); K51.90 Ulcerative colitis, unspecified, without complications; F90.9 Attention-deficit hyperactivity disorder, unspecified type; F43.10 Post-traumatic stress disorder, unspecified; F10.10 Alcohol abuse, uncomplicated; F12.10 Cannabis abuse, uncomplicated; Z20.822 Contact with and (suspected) exposure to COVID-19; F17.210 Nicotine dependence, cigarettes, uncomplicated; Z71.6 Tobacco abuse counseling; Z79.899 Other long term (current) drug therapy
CPT/HCPCS: 36415; 71046; 80061; 82306; 83036; 83540; 84443; 85652; 86140; 86431; 87635; 93005; J1200; J2060; Q0163